=== PATIENT | female | born 1995 | race Caucasian/White ===

== ENCOUNTER → 2016-06-01 | Outpatient (CLI) | payer OTHER ==
[~2016-06-01] MED LIST: BCPILLS PO; DXY100 PO
--- NOTE | 2016-06-01 17:32 | DIAGNOSTIC IMAGING REPORT ---
EXAMINATION: PELVIC ULTRASOUND CLINICAL HISTORY: PAIN/PRESSURE IN LOWER Ab; r/o AB MASS COMPARISON STUDY: None FINDINGS: The uterus measured 6.5 cm. The endometrial stripe measured 8 mm. The right ovary measured 3.4 cm with normal vascular flow. The left ovary measured 4.0 cm with normal vascular flow. There is no ultrasonographic evidence of ovarian torsion. It should be noted that ovarian torsion can be present with normal Doppler ultrasonographic findings. There was no evidence of pathologic free pelvic fluid. IMPRESSION: Normal study Electronically signed by: Jasson Metcalf M.D. 06/01/2016 5:30 PM Dictated Date/Time: 06/01/2016 5:29 PM
--- NOTE | 2016-06-01 17:33 | DIAGNOSTIC IMAGING REPORT ---
Pain (BLADE) RETROPERITONEAL LTD CLINICAL HISTORY: PAIN/PRESSURE IN LOWER Ab; r/o AB MASS pain. Mass. TECHNIQUE: Ultrasound COMPARISON STUDY: None FINDINGS: Normal appearing bladder. Bladder wall is uniform. Post void volume is 5 cc. IMPRESSION: Normal bladder. No significant post void residual. Electronically signed by: Jasson Metcalf M.D. 06/01/2016 5:32 PM Dictated Date/Time: 06/01/2016 5:31 PM
--- NOTE | 2016-06-01 17:34 | DIAGNOSTIC IMAGING REPORT ---
ABDOMINAL ULTRASOUND, RIGHT UPPER QUADRANT HISTORY: Pain PAIN/PRESSURE IN LOWER Ab; r/o AB MASS. COMPARISON: None. FINDINGS: Pancreas: The pancreas demonstrates a normal echotexture. Liver: Unremarkable. Gallbladder: No gallbladder wall thickening. No gallstones. CBD: 3 mm Right kidney: No hydronephrosis. IMPRESSION: No significant abnormality identified within the within the right upper quadrant. Electronically signed by: Jasson Metcalf M.D. 06/01/2016 5:33 PM Dictated Date/Time: 06/01/2016 5:32 PM
== END | disposition home or self-care (01) ==
LOC: C.ULTR 15:56
PROVIDERS: ATTEND Family Medicine
DX: R32 Unspecified urinary incontinence (principal); R10.9 Unspecified abdominal pain